=== PATIENT | female | born 1970 | race Caucasian/White ===

== ENCOUNTER → 2025-03-09 14:38 | Outpatient (REF) | payer BC, SELFPAY | LOC: RAD 14:38 | PROVIDERS: ATTENDING PHYSICIAN Family Medicine | DX: E04.1 Nontoxic single thyroid nodule (principal) | CPT/HCPCS: 76536 ==

== ENCOUNTER → 2025-05-13 11:40 | Outpatient (REF) | payer BC, SELFPAY | LOC: MRI 3T 11:40 | PROVIDERS: ATTENDING PHYSICIAN Family Medicine | DX: G93.0 Cerebral cysts (principal) | CPT/HCPCS: 70551 ==

== ENCOUNTER → 2025-09-21 12:24 | Outpatient (REF) | payer BC, SELFPAY | LOC: WDC 12:24 | PROVIDERS: ATTENDING PHYSICIAN Nurse Practitioner Adult Health; FAMILY PHYSICIAN Family Medicine | DX: Z12.31 Encounter for screening mammogram for malignant neoplasm of breast (principal) | CPT/HCPCS: 77063; 77067 ==

== ENCOUNTER → 2025-09-26 16:13 | Outpatient (REF) | payer BC, SELFPAY | LOC: PAVMRI 16:13 | PROVIDERS: ATTENDING PHYSICIAN Neurological Surgery; FAMILY PHYSICIAN Family Medicine | DX: M54.2 Cervicalgia (principal) | CPT/HCPCS: 72141 ==